=== PATIENT | male | born 1945 | race Hispanic/Latino ===

== ENCOUNTER 2020-08-29 07:01 | Observation (INO) | payer MEDICARE, BC, OTHER ==
[2020-08-26 11:59] LABS: BASOPHILS # (AUTO) 0.1 (0.0-0.1); BASOPHILS % 0.6 % (0.0-1.0); EOSINOPHILS # (AUTO) 0.1 (0.0-0.4); HEMATOCRIT 36.4 % (38.2-49.6); HEMOGLOBIN 13.2 g/dL (14.0-18.0); LYMPHOCYTES # (AUTO) 1.7 (1.0-3.2); LYMPHOCYTES % 20.7 % (18.0-39.1); MEAN CORPUSCULAR HEMOGLOBIN 31.5 pg (28-32); MEAN CORPUSCULAR HGB CONC 36.3 g/dL (31-35); MEAN CORPUSCULAR VOLUME 86.9 fL (81-99); MONOCYTES # (AUTO) 0.6 (0.2-0.8); MONOCYTES % 6.8 % (4.4-11.3); NEUTROPHILS # (AUTO) 5.8 (2.1-6.9); NEUTROPHILS % 70.4 % (38.7-80.0); PLATELET COUNT 236 x10e3/uL (140-360); RED BLOOD COUNT 4.19 x10e6/uL (4.3-5.7); RED CELL DISTRIBUTION WIDTH 11.5 % (11.7-14.4)
[2020-08-26 12:17] LABS: INR 0.94; PROTHROMBIN TIME 13.1 seconds (11.9-14.5)
[2020-08-26 12:24] LABS: ANION GAP 14.5 mmol/L (8-16); CREATININE, SERUM 1.63 mg/dL (0.72-1.25); POTASSIUM 3.5 mmol/L (3.5-5.1)
--- NOTE | 2020-08-26 12:50 | Diagnostic Imaging Report ---
EXAMINATION: CHEST 2 VIEWS INDICATION: Pre-operative COMPARISON: None FINDINGS: LINES/TUBES:None LUNGS:The lungs are well-inflated. No focal consolidation or pulmonary edema. PLEURA:No pleural effusion or pneumothorax. MEDIASTINUM:The cardiomediastinal silhouette appears normal in size and shape. BONES/SOFT TISSUES:No acute osseous injury. ABDOMEN:No free air under the diaphragm. IMPRESSION: No focal pneumonia or pulmonary edema. Signed by: Brian Knight MD on 08/26/2020 12:47 PM
[~2020-08-29] VITALS: Ht 175.3 cm; Wt 80.3 kg
[~2020-08-29 07:01] MED LIST: AMLODIPINE BESY10 MG PO; GABAPENTIN300 MG PO; LOSARTAN POTAS100 MG PO; LOVASTATIN10 MG PO; LUPRON DEPOT11.25 M2 PO; METOPROLOL SUCC50 MG PO; PAROXETINE HCL20 MG PO; TRESIBA FL200 UNIT/1 SC; VIT D2 PO
[2020-08-29] MEDS ORDERED: LIDOCAINE HCL (LTA) 4 ML SOLN ONE (07:26)
[2020-08-29] MEDS ORDERED: ACETAMINOPHEN 1000 MG/100 ML 100 ML IV ONE (07:26)
[2020-08-29] MEDS ORDERED: CEFAZOLIN SOD 1 GM/NS 50ML 100 ML IV ONE (07:44)
[2020-08-29] MEDS ORDERED: INSULIN REGULAR, HUMAN 100 UNIT/1 ML 3ML VIAL ONE (08:40)
[2020-08-29] MEDS ORDERED: HEPARIN SOD/SOD CHLORIDE 1,000 ML ONE (08:59)
[2020-08-29] MEDS ORDERED: LIDOCAINE 1% W/EPINEPHRINE 20 ML VIAL ONE (09:02)
[2020-08-29] MEDS ORDERED: VANCOMYCIN HCL 1 GM VIAL ONE (09:03)
[2020-08-29] MEDS ORDERED: THROMBIN FOR SOLN 5,000 UNIT VIAL ONE (09:03)
[2020-08-29] MEDS ORDERED: GLYCOPYRROLATE 0.2 MG/ML VIAL ONE (11:23)
[2020-08-29] MEDS ORDERED: PROMETHAZINE HCL (IM) 25 MG/ML VIAL IM PRN (12:45)
[2020-08-29] MEDS ORDERED: CARISOPRODOL 350 MG TAB PO PRN (12:45)
[2020-08-29] MEDS ORDERED: DEXTROSE 50% SYRINGE 50 ML IV PRN (12:45)
[2020-08-29] MEDS ORDERED: ACETAMINOPHEN 325 MG TAB PO PRN (12:45)
[2020-08-29] MEDS: LACTATED RINGER'S 1,000 ML IV SCH ×2 (12:45→21:24)
[2020-08-29] MEDS ORDERED: MAGNESIUM/ALUMINUM/SIMETHICONE 30 ML UDC PO PRN (12:45)
[2020-08-29] MEDS ORDERED: HYDROMORPHONE 2MG/ML 2 MG/ML ML IV PRN ×3 (12:45)
[2020-08-29] MEDS ORDERED: CEPACOL SORE THROAT LOZENGES PO PRN (12:45)
[2020-08-29] MEDS ORDERED: OXYCODONE/ACETAMINOPHEN 5-325 1 EACH TABLET PO PRN (12:45)
[2020-08-29] MEDS ORDERED: ONDANSETRON HCL INJ 2MG/ML 2ML 2 MG/ML VIAL IV PRN (12:45)
[2020-08-29] MEDS ORDERED: EPHEDRINE SULFATE INJ 50 MG/ML VIAL ONE (13:10)
[2020-08-29] MEDS ORDERED: NEOSTIGMINE 1 MG/ML 10ML VIAL ONE (13:10)
[2020-08-29] MEDS ORDERED: ONDANSETRON HCL INJ 2MG/ML 2ML 2 MG/ML VIAL ONE (13:10)
[2020-08-29] MEDS ORDERED: DEXAMETHASONE SOD PHOS INJ 4 MG/ML VIAL ONE (13:10)
[2020-08-29] MEDS ORDERED: LIDOCAINE HCL 2% LOCAL INJ 5 ML SDV VIAL INJ ONE (13:10)
[2020-08-29] MEDS ORDERED: GLYCOPYRROLATE INJ 0.2 MG/ML VIAL ONE (13:10)
[2020-08-29] MEDS ORDERED: ROCURONIUM BROMIDE 10 MG/ML 5ML VIAL IV ONE (13:10)
[2020-08-29] MEDS ORDERED: SEVOFLURANE INHAL SOLN 250 ML PEN BTL ONE (13:10)
[2020-08-29] MEDS ORDERED: PROPOFOL IV EMULSION 10 MG/ML 20 ML VIAL ONE (13:10)
--- OUTSIDE RECORDS SUMMARY | 2020-08-29 13:11 | XMS REPORT | Continuity of Care Document ---
Author Author [facility] t Organization [facility] Address [address] [place] [address] Phone Unavailable Care Team Providers Care Obstetrics Technician Name Role Phone DESIRAE MCGOWAN PCP Unavailable SYSTEM, NOT IN PROVIDER Attphys Unavailable JUAN M DESIRAE Attphys Unavailable PAKZABAN, AMRIT Attphys Unavailable BELL, SAAMIR Attphys Unavailable MICHAEL, RINCY Attphys Unavailable ALEXANDRE, TY Attphys Unavailable Payers Payer Name Policy Type Policy Number Effective Date Expiration Date S adolfo MEDICARE PART A AND B [id number] 2008 00:00:00 [place] P[place] POS [id number] 2015 00:00:00 Problems This patient has no known problems. Allergies, Adverse Reactions, Alerts This patient has no known allergies or adverse reactions. Medications This patient has no known medications. Vital Signs Vital Name Observation Time Observation Value Comments Source HEIGHT 2020-06-24 08:44:00 172 cm WEIGHT 2020-06-24 08:44:00 84.3 kg WEIGHT 2020-06-12 09:31:12 84.4 kg HEIGHT 2020-06-05 00:00:00 172 cm WEIGHT 2020-06-05 00:00:00 82.9 kg Procedures This patient has no known procedures. Encounters Start Date/Time End Date/Time Encounter Type Admission Type Attendi [facility] Care Department Encounter ID Source 2020-06-04 14:54:10 Outpatient SYSTEM, PROVIDER SWATI LONGORIA [id number] [place] 2020-12-18 00:00:00 2020-12-18 00:00:00 Outpatient DESIRAE AGUILAR MDA, MDA [id number] [place] 2020-12-17 00:00:00 2020-12-17 00:00:00 Outpatient DESIRAE AGUILAR MDA, MDA [id number] [place] 2020-12-17 00:00:00 2020-12-17 00:00:00 Outpatient DESIRAE AGUILAR MDA MDA [id number] [facility] 2020-09-24 00:00:00 2020-09-24 00:00:00 Outpatient JOHNATHON LOPEZ DESIRAE MDA MDA [id number] [facility] 2020-09-24 00:00:00 2020-09-24 00:00:00 Outpatient JOHNATHON LOPEZ DESIRAE MDA MDA [id number] [facility] 2020-09-16 00:00:00 2020-09-16 00:00:00 Outpatient JOHNATHON LOPEZ DESIRAE MDA MDA [id number] [facility] 2020-09-16 00:00:00 2020-09-16 00:00:00 Outpatient DESIRAE AGUILAR MDA MDA [id number] [facility] 2020-06-26 00:00:00 2020-06-26 00:00:00 Outpatient JOHNATHON LOPEZ DESIRAE MDA MDA [id number] [facility] 2020-06-24 08:39:08 2020-06-24 11:47:56 Outpatient JOHNATHON LOPEZ DESIRAE MDA MDA [id number] [facility] 2020-06-24 10:41:31 2020-06-24 10:41:31 Outpatient DESIRAE AGUILAR MDA MDA [id number] [facility] 2020-06-12 09:23:06 2020-06-12 10:07:22 Outpatient CHITRA TERRY MDA MDA [id number] [facility] 2020-06-07 09:39:44 2020-06-07 13:55:18 Outpatient NISA RAMOS DA MDA [id number] [facility] 2020-06-07 11:47:08 2020-06-07 11:47:08 Outpatient NISA RAMOS DA MDA [id number] [facility] 2020-06-07 10:03:39 2020-06-07 10:03:39 Outpatient NISA RAMOS DA MDA [id number] [facility] 2020-06-07 08:32:47 2020-06-07 08:32:47 Outpatient NISA RAMOS DA MDA [id number] [facility] [place] 2020-06-06 00:00:00 2020-06-06 00:00:00 Outpatient NISA RAMOS DA MDA [id number] [facility] [place] 2020-06-06 00:00:00 2020-06-06 00:00:00 Outpatient NISA RAMOS DA MDA [id number] [facility] [place] 2020-06-06 00:00:00 2020-06-06 00:00:00 Outpatient NISA RAMOS DA MDA [id number] [facility] [place] 2020-06-05 10:30:00 2020-06-05 23:59:00 Outpatient NISA RAMOS DA MDA [id number] [facility] [place] 2020-06-05 09:01:40 2020-06-05 12:28:38 Outpatient JOHNATHON DESIRAE ROSE MDA MDA [id number] [facility] [place] 2020-06-05 08:51:13 2020-06-05 08:59:27 Outpatient JOHNATHON ALEXANDRETY MDA MDA [id number] [facility] [place] 2020-06-05 00:00:00 2020-06-05 00:00:00 Outpatient NISA RAMOS DA MDA [id number] [facility] [place] 2020-06-03 08:15:27 2020-06-03 08:31:47 Outpatient JOHNATHON ALEXANDRETY MDA MDA [id number] [place] Results Test Description Test Time Test Comments Results Result Comments Source CHEST 2 VIEWS 2020-08-26 12:47:00 [place] [address] Patient Name: DELVIS PEÑA MR #: [id number] : 1945 Age/Sex: 75/M Req #: [id number] Adm Physician: Ordered by: AMRIT JEFFERS MD Report #: [id number] Location: OR Room/Bed: Procedure: [id number] DX/CHEST 2 VIEWS Exam Date: 08/26/20 Exam Time: 1223 REPORT STATUS: Signed EXAMINATION: CHEST 2 VIEWS INDICATION: Pre-operative COMPARISON: None FINDINGS: LINES/TUBES:None LUNGS:The lungs are well-inflated. No focal consolidation or pulmonary edema. PLEURA:No pleural effusion or pneumothorax. MEDI ASTINUM:The cardiomediastinal silhouette appears normal in size and shape. BONES/SOFT TISSUES:No acute osseous injury. ABDOMEN:No free air under the diaphragm. IMPRESSION: No focal pneumonia or pulmonary edema. Signed by: Carrol Knight MD on 08/26/2020 12:47 PM Dictated By: CARROL KNIGHT MD 1247 Transcribed By: SHAILA on 08/26/20 1247 COPY TO: AMRIT JFEFERS MD
[2020-08-29] MEDS ORDERED: MIDAZOLAM HCL 2 MG/2 ML VIAL ONE (14:12)
[2020-08-29] MEDS ORDERED: FENTANYL CITRATE/PF 100MCG/2 ML INJ ONE (14:12)
[2020-08-29] MEDS ORDERED: INSULIN LISPRO 100 UNIT/1 ML 3ML VIAL SQ SCH (16:30)
[2020-08-29 17:54] VITALS: BP 172/83
[2020-08-29] MEDS ORDERED: MORPHINE SULFATE INJ 10 MG/ML IM PRN (18:00)
[2020-08-29 18:23] VITALS: BP 154/85
[2020-08-29] MEDS: LOSARTAN POTASSIUM 100 MG TAB PO SCH (18:39)
[2020-08-29] MEDS: GABAPENTIN 300 MG CAP PO SCH ×2 (18:40→21:25)
[2020-08-29] MEDS: AMLODIPINE BESYLATE 10 MG TAB PO SCH (18:40)
[2020-08-29] MEDS: CEFAZOLIN SOD 1 GM/NS 50ML 50 ML IV SCH ×2 (18:41→21:25)
[2020-08-29] MEDS ORDERED: SODIUM CHLORIDE 0.9% 250ML 250 ML ONE (18:42)
--- NOTE | 2020-08-29 19:17 | Operative Report ---
DATE OF PROCEDURE: 08/29/2020 SURGEON: Jignesh Pascal MD PREOPERATIVE DIAGNOSIS: C3-4 and C4-5 spondylosis and spinal stenosis with radiculopathy, M50.120. POSTOPERATIVE DIAGNOSIS: C3-4 and C4-5 spondylosis and spinal stenosis with radiculopathy, M50.120. PROCEDURES: 1. C3-4 anterior cervical diskectomy and microsurgical osteophyte resection and allograft fusion, 39440. 2. C4-5 anterior cervical diskectomy and microsurgical osteophyte resection and allograft fusion, 60058. 3. Preparation of tricortical iliac crest allograft, 63232. 4. C3-4 and C4-5 anterior cervical plating with Synthes CSLP plate, 80936. ANESTHESIA: General. INDICATIONS: The patient is a 75-year-old man, who presents with C3-4 and C4-5 spondylosis and spinal stenosis, who was taken to surgery for two-level ACDF. PROCEDURE IN DETAIL: After induction of general anesthesia, the patient was placed on the operating table in supine position. The right side of the neck was prepped and draped in sterile fashion. The fluoroscopic C-arm was positioned in cross-table lateral orientation. A transverse incision was created on right side of the neck superimposed on the C4 vertebral body as determined by fluoroscopy. The platysma was divided in line with incision. A subplatysmal dissection was carried out and avascular plane of dissection was developed medial to sternocleidomastoid and muscle was followed medial to the carotid sheath to the anterior border of cervical spine. The deep cervical fascia was opened. The esophagus was retracted to the left. The attachments of longus colli muscles to the anterolateral aspects of vertebral bodies of C3, C4, and C5 were divided. The anterior longitudinal ligament was resected. [place] posts were inserted into C3 and C5 and the [place] distractor was used to distract both disk spaces. The anterior annuli of disks were incised with a #11 blade. The contents of both disks were thoroughly evacuated with curettes and pituitary instruments. Posterior osteophytes were meticulously drilled with a 2 mm cutting bur on a high-speed drill until they were completely removed. The posterior annulus of the disk, herniated disk material, and the posterior longitudinal ligament were resected layer by layer until the dura was fully exposed and decompressed. The medial aspects of the uncinate processes were resected bilaterally to further expose any compressed origins of the corresponding nerve roots. After satisfactory decompression had been achieved, the endplates were prepared for fusion. Two pieces of tricortical iliac crest allograft were cut to the size and shapes of the disk spaces and were inserted into the disk spaces under distraction and fluoroscopic guidance. The distraction was released and the distraction posts were removed. A Synthes CSLP variable type anterior cervical plate was selected and was affixed to vertebral bodies of C3, C4, and C5 with 3 pairs of screws. The screws in C3 were 16 x 4.5 mm in dimensions. The screws in C4 and C5 were 14 x 4.35 mm. All screw holes were drilled on the lateral fluoroscopic guidance. All screws were locked with the appropriate locking screws. An excellent construct was obtained. The wound was copiously irrigated with bacitracin solution. Meticulous hemostasis was secured. The retractor was removed. A small Hemovac drain was placed and brought out through a separate stab incision. The platysma was closed with 3-0 Vicryl sutures. The skin was closed with 4-0 Monocryl sutures in subcuticular fashion. Steri-Strips and dressing were applied. The patient was awakened, extubated, and taken to postanesthesia care unit in stable condition. No intraoperative complications were encountered. Estimated blood loss was 20 mL. Jignesh Pascal MD PP/RODERICK /[id number]
[2020-08-29 20:00] VITALS: BP 145/72
--- NOTE | 2020-08-29 20:00 | NUR ---
patient stable reports some soreness to throat and pain to surgery site; patient in bed resting; hemovac in place
--- NOTE | 2020-08-29 20:03 | NUR ---
PAGE PLACED FOR MD JEFFERS CONCERNING ELEVATED BLOOD SUGAR. WAITING FOR CALLBACK.
--- NOTE | 2020-08-29 20:08 | NUR ---
SPOKE WITH MD JEFFERS CONCERNING ELEVATED BLOOD SUGAR. NEW ORDERS RECEIVED.
[2020-08-29] MEDS ORDERED: INSULIN LISPRO 100 UNIT/1 ML 3ML VIAL SQ ONE (20:15)
[2020-08-29] MEDS ORDERED: ZOLPIDEM TARTRATE 5 MG TAB PO PRN (21:00)
[2020-08-29 22:28] VITALS: BP 172/83
[2020-08-30] VITALS: BP 125/65
[2020-08-30 04:00] VITALS: BP 146/76
[2020-08-30] MEDS: CEFAZOLIN SOD 1 GM/NS 50ML 50 ML IV SCH (05:07)
[2020-08-30] MEDS: LACTATED RINGER'S 1,000 ML IV SCH (05:25)
[2020-08-30] MEDS ORDERED: INSULIN LISPRO 100 UNIT/1 ML 3ML VIAL SQ SCH (07:30)
[2020-08-30 07:44] VITALS: BP 138/79
[2020-08-30] MEDS: GABAPENTIN 300 MG CAP PO SCH (08:11)
[2020-08-30] MEDS: LOSARTAN POTASSIUM 100 MG TAB PO SCH (08:11)
[2020-08-30] MEDS: AMLODIPINE BESYLATE 10 MG TAB PO SCH (08:11)
--- NOTE | 2020-08-30 08:41 | Diagnostic Imaging Report ---
Exam: Cervical spine 2 views History: Status post surgery Comparison: None. Findings: The cervical spine is visualized from the skull base to the top of T1 on the lateral radiograph. Status post anterior fusion of C3-C5 with an intact plate and screw construct. No evidence of hardware failure. No malalignment. Expected postsurgical thickening of the prevertebral soft tissues. Surgical drainage catheter lies within the right cervical soft tissues. Impression: Postsurgical changes related to anterior fusion C3-C5 as detailed above. Signed by: Dr. José Marquez M.D. on 08/30/2020 8:38 AM
[2020-08-30 08:59] VITALS: BP 138/79
[2020-08-30] MEDS ORDERED: METOPROLOL SUCCINATE 50 MG TAB XL PO SCH (09:00)
[2020-08-30] MEDS ORDERED: PAROXETINE HCL 20 MG TAB PO SCH (09:00)
[2020-08-30] MEDS ORDERED: INSULIN DEGLUDEC 42 UNIT SQ SCH (09:00)
--- NOTE | 2020-08-30 09:27 | NUR ---
Patient discharged home, Hemovac removed, dressing changed , Discharge instruction and Hand out given, patient verbalized understanding, no bleeding , drainage, no s/s of infection on neck surgical site, neck collar ON. IV Canula removed with tip intact, no ss of infiltration. Patient aware about f/up appointment. here to pick him
[2020-08-30] MEDS ORDERED: SIMVASTATIN 20 MG TAB PO SCH (21:00)
== END 2020-08-30 09:41 | disposition home or self-care (01) ==
LOC: OR 07:01 → PACU V 12:48 → MED/SURG 17:33
PROVIDERS: ADMIT Neurological Surgery; ATTEND Neurological Surgery
DX: M47.22 Other spondylosis with radiculopathy, cervical region (principal); Z11.59 Encounter for screening for other viral diseases; I10 Essential (primary) hypertension; E78.5 Hyperlipidemia, unspecified; Z85.46 Personal history of malignant neoplasm of prostate; E11.9 Type 2 diabetes mellitus without complications; Z79.4 Long term (current) use of insulin
CPT/HCPCS: 20931; 22551; 22552; 22845; 36415 ×3; 71046; 72040; 77003; 80048; 82948 ×2; 85025; 85610; 85730; 86850; 86900; 88304; 93005; 96361; C1713 ×5; C1768; G0378 ×2; J0131; J0690 ×2; J1100; J2001; J2250; J2405; J2704; J2710; J3010; J3370; J7050; J7121; L8699; U0002; J1817